=== PATIENT | male | born 1990 | race Caucasian/White ===

== ENCOUNTER 2016-07-24 06:00 | Emergency (ER) | payer OTHER ==
[~2016-07-24] VITALS: Ht 177.8 cm; Wt 96.6 kg
[2016-07-24 06:09] VITALS: BP 149/75
--- NOTE | 2016-07-24 06:15 | NUR ---
PT TAKEN TO BED 6
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
--- NOTE | 2016-07-24 06:25 | NUR ---
Dr. Morris evaluating patient at bedside.
[2016-07-24] MEDS ORDERED: KETOROLAC 30 MG/ML VIAL IVP ONE (06:30)
[2016-07-24] MEDS ORDERED: NACL 0.9% 1,000 ML IV ONE (06:30)
--- NOTE | 2016-07-24 06:39 | NUR ---
PT TAKEN TO XRAY
--- NOTE | 2016-07-24 06:50 | NUR ---
CAME BACK FROM X-RAY
[2016-07-24 06:52] LABS: BASOPHILS # (AUTO) 0.3 K/uL (0.00-0.22); EOSINOPHILS # (AUTO) 0.3 K/uL (0-0.4); EOSINOPHILS % (AUTO) 4.2 % (0.0-4.0); HEMATOCRIT 50.9 % (36-52); HEMOGLOBIN 16.9 g/dL (12.0-18.0); LYMPHOCYTES # (AUTO) 2.1 K/uL (2.0-11.5); LYMPHOCYTES % (AUTO) 27.2 % (20.5-51.1); MEAN CORPUSCULAR HEMOGLOBIN 32 pg (27-31); MEAN CORPUSCULAR HGB CONC 33 g/dL (33-37); MEAN CORPUSCULAR VOLUME 96 fL (80-94); MONOCYTES # (AUTO) 0.9 K/uL (0.8-1.0); MONOCYTES % (AUTO) 11.5 % (1.7-9.3); NEUTROPHILS # (AUTO) 4.1 K/uL (1.8-7.7); NEUTROPHILS % (AUTO) 53.1 % (42.2-75.2); PLATELET COUNT (AUTO) 173 K/uL (140-450); RED BLOOD CELL COUNT(AUTO) 5.32 MIL/uL (4.20-6.10); RED CELL DISTRIBUTION WIDTH 12.7 % (11.6-13.7); WHITE BLOOD COUNT (AUTO) 7.7 K/uL (4.8-10.8)
[2016-07-24 06:59] LABS: AMPHETAMINE, URINE NEG. ng/ml (NEG <=1000); BARBITURATE, URINE NEG. ng/ml (NEG <=200); BENZODIAZEPINE, URINE NEG. ng/mL (NEG <=200); CANNABINOID, URINE POS. ng/mL (NEG <=50); COCAINE, URINE NEG. ng/mL (NEG <=300); OPIATE, URINE NEG. ng/mL (NEG <=2000); PHENCYCLIDINE SCREEN,URINE NEG. ng/mL (NEG <=25)
[2016-07-24 07:00] LABS: ANION GAP 9.7 (8-16); CALCIUM 9.4 mg/dL (8.5-10.1); CREATININE 1.2 mg/dL (0.6-1.3); POTASSIUM 3.7 mmol/L (3.5-5.1)
[2016-07-24 07:04] LABS: INR 1.1 (0.8-1.2); PARTIAL THROMBOPLASTIN TIME 31.3 secs (22-35.6); PROTHROMBIN TIME 10.1 secs (10.8-13.4)
[2016-07-24 07:08] LABS: ALBUMIN 4.4 g/dL (3.4-5.0); TOTAL BILIRUBIN 1.8 mg/dL (0.0-1.0); TOTAL PROTEIN, SERUM 8.1 g/dL (6.4-8.2)
--- NOTE | 2016-07-24 07:13 | NUR ---
Pt report given to [facility] AT BEDSIDE. Transfer of care at this time.
--- NOTE | 2016-07-24 07:24 | NUR ---
Pt found resting comfortably. No distress noted. VSS.
[2016-07-24 07:48] VITALS: BP 139/69
== END 2016-07-24 07:46 | disposition home or self-care (01) ==
LOC: MED 06:00
DX: S22.20XA Unspecified fracture of sternum, initial encounter for closed fracture (principal); R03.0 Elevated blood-pressure reading, without diagnosis of hypertension; X58.XXXA Exposure to other specified factors, initial encounter; Y93.89 Activity, other specified; Y92.89 Other specified places as the place of occurrence of the external cause; Y99.8 Other external cause status
CPT/HCPCS: 36415; 71010; 71120; 80053; 80305; 84484; 85025; 85610; 85730; 93005; 96361; 96374; 99285; J1885; J7030; 81002

== ENCOUNTER 2016-09-17 01:30 | Emergency (ER) | payer OTHER ==
[~2016-09-17] VITALS: Ht 177.8 cm; Wt 92.1 kg
[2016-09-17 01:40] VITALS: BP 134/79
--- NOTE | 2016-09-17 01:54 | NUR ---
AMBULATED TO ER BED 4
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
--- NOTE | 2016-09-17 02:00 | NUR ---
Patient being evaluated by DR. LOUIS at bedside.
[2016-09-17 02:38] LABS: ANION GAP 11.1 (8-16); CALCIUM 8.3 mg/dL (8.5-10.1); CARBON DIOXIDE 29.4 mmol/L (21-32); CREATININE 1.2 mg/dL (0.7-1.3); POTASSIUM 3.5 mmol/L (3.5-5.1)
[2016-09-17 03:26] VITALS: BP 141/81
--- NOTE | 2016-09-17 03:29 | NUR ---
Patient discharged with v/s stable. Written and verbal after care instructions given and explained. Patient verbalized understanding. Ambulatory with steady gait. All questions addressed prior to discharge. Advised to follow up with PMD.
== END 2016-09-17 03:05 | disposition home or self-care (01) ==
LOC: MED 01:30
DX: F14.10 Cocaine abuse, uncomplicated (principal); F12.10 Cannabis abuse, uncomplicated
CPT/HCPCS: 36415; 80048; 84484; 93005; 99285

== ENCOUNTER 2016-10-14 11:28 | Emergency (ER) | payer OTHER ==
[~2016-10-14] VITALS: Ht 175.3 cm; Wt 90.7 kg
[2016-10-14 11:37] VITALS: BP 141/73
[2016-10-14] MEDS ORDERED: cefTRIAXone 250 MG in LIDOCAINE 1% ED 0.9 ML IM ONE (11:55)
[2016-10-14] MEDS ORDERED: AZITHROMYCIN 250 MG TAB PO ONE (11:55)
[2016-10-14 13:26] VITALS: BP 129/89
[2016-10-15 09:07] LABS: HIV 1/0/2 ABS, QUAL Non Reactive (Non Reactive)
== END 2016-10-14 13:26 | disposition home or self-care (01) ==
LOC: MED 11:28
DX: Z11.3 Encounter for screening for infections with a predominantly sexual mode of transmission (principal); J02.9 Acute pharyngitis, unspecified; B00.9 Herpesviral infection, unspecified
CPT/HCPCS: 36415; 86592; 86694; 86702; 87081; 96372; 99284; J0696; J2001

== ENCOUNTER 2017-01-25 08:39 | Outpatient (CLI) | payer OTHER ==
[2017-01-25 09:06] LABS: BASOPHILS # (AUTO) 0.3 K/uL (0.00-0.22); BASOPHILS % (AUTO) 4.2 % (0.0-2.0); EOSINOPHILS # (AUTO) 0.4 K/uL (0-0.4); EOSINOPHILS % (AUTO) 5.6 % (0.0-4.0); HEMOGLOBIN 15.6 g/dL (12.0-18.0); LYMPHOCYTES # (AUTO) 1.7 K/uL (2.0-11.5); LYMPHOCYTES % (AUTO) 24.9 % (20.5-51.1); MEAN CORPUSCULAR HEMOGLOBIN 31 pg (27-31); MEAN CORPUSCULAR HGB CONC 33 g/dL (33-37); MEAN CORPUSCULAR VOLUME 94 fL (80-94); MONOCYTES # (AUTO) 0.5 K/uL (0.8-1.0); MONOCYTES % (AUTO) 7.5 % (1.7-9.3); NEUTROPHILS # (AUTO) 4.1 K/uL (1.8-7.7); NEUTROPHILS % (AUTO) 57.8 % (42.2-75.2); PLATELET COUNT (AUTO) 166 K/uL (140-450); RED BLOOD CELL COUNT(AUTO) 5.03 MIL/uL (4.20-6.10); RED CELL DISTRIBUTION WIDTH 12.7 % (11.6-13.7)
[2017-01-25 14:20] LABS: ALBUMIN 4.3 g/dL (3.4-5.0); ANION GAP 14.4 (8-16); CARBON DIOXIDE 29.1 mmol/L (21-32); CHOL/HDL RATIO 3.7 (1-4.5); CREATININE 1.2 mg/dL (0.7-1.3); POTASSIUM 4.5 mmol/L (3.5-5.1); THYROID STIMULATING HORMONE 2.2 uIU/mL (0.34-3.74)
== END 2017-01-25 22:00 | disposition home or self-care (01) ==
LOC: MLB 08:39
PROVIDERS: ATTEND Family Medicine
DX: E78.2 Mixed hyperlipidemia (principal); Z20.2 Contact with and (suspected) exposure to infections with a predominantly sexual mode of transmission
CPT/HCPCS: 36415; 80053; 84443; 85025; 86702

== ENCOUNTER 2017-03-11 15:32 | Outpatient (CLI) | payer OTHER ==
[2017-03-11 16:47] LABS: BASOPHILS # (AUTO) 0.4 K/uL (0.00-0.22); EOSINOPHILS # (AUTO) 0.3 K/uL (0-0.4); HEMATOCRIT 44.4 % (36-52); HEMOGLOBIN 14.9 g/dL (12.0-18.0); LYMPHOCYTES # (AUTO) 1.9 K/uL (2.0-11.5); MEAN CORPUSCULAR HEMOGLOBIN 32 pg (27-31); MEAN CORPUSCULAR HGB CONC 34 g/dL (33-37); MEAN CORPUSCULAR VOLUME 95 fL (80-94); MONOCYTES # (AUTO) 0.9 K/uL (0.8-1.0); NEUTROPHILS # (AUTO) 4.3 K/uL (1.8-7.7); PLATELET COUNT (AUTO) 195 K/uL (140-450); RED BLOOD CELL COUNT(AUTO) 4.67 MIL/uL (4.20-6.10); RED CELL DISTRIBUTION WIDTH 12.7 % (11.6-13.7); WHITE BLOOD COUNT (AUTO) 7.8 K/uL (4.8-10.8)
[2017-03-11 17:28] LABS: ALBUMIN 4.3 g/dL (3.4-5.0); ANION GAP 12.9 (8-16); CARBON DIOXIDE 32.1 mmol/L (21-32); CREATININE 1.3 mg/dL (0.7-1.3); MAGNESIUM 2.1 mg/dL (1.8-2.4); TOTAL BILIRUBIN 0.8 mg/dL (0.0-1.0)
== END 2017-03-11 21:46 | disposition home or self-care (01) ==
LOC: MLB 15:32
PROVIDERS: ATTEND Family Medicine
DX: R42 Dizziness and giddiness (principal); R51 Headache; R73.01 Impaired fasting glucose
CPT/HCPCS: 36415; 80053; 83036; 83735; 85025; 85651

== ENCOUNTER 2017-07-01 08:13 | Outpatient (CLI) | payer OTHER ==
[2017-07-01 13:55] LABS: ANION GAP 13.7 (8-16); CARBON DIOXIDE 29.6 mmol/L (21-32); POTASSIUM 4.3 mmol/L (3.5-5.1)
[2017-07-01 13:56] LABS: ALBUMIN 4.5 g/dL (3.4-5.0); CREATININE 1.2 mg/dL (0.7-1.3); TOTAL BILIRUBIN 1.7 mg/dL (0.0-1.0)
[2017-07-01 13:57] LABS: CHOL/HDL RATIO 5.1 (1-4.5)
== END 2017-07-01 21:12 | disposition home or self-care (01) ==
LOC: MUS 08:13
PROVIDERS: ATTEND Family Medicine
DX: R10.11 Right upper quadrant pain (principal); E78.5 Hyperlipidemia, unspecified; R73.9 Hyperglycemia, unspecified
CPT/HCPCS: 36415; 76705; 80053; 83036

== ENCOUNTER 2018-06-08 07:12 | Emergency (ER) | payer OTHER ==
[~2018-06-08] VITALS: Ht 177.8 cm; Wt 96.8 kg
[2018-06-08 07:16] VITALS: BP 139/80
--- NOTE | 2018-06-08 07:21 | NUR ---
Patient ambulated to bed 4.
--- NOTE | 2018-06-08 07:24 | NUR ---
PT BIB SELF TO THE ED WITH THE CHIEF C/O THROAT PAIN, SWOLLEN TONSILS AND COUGH FOR 4 WEEKS. NOT SEEN BY ANY DOCTOR YET. NOT TAKING ANY MEDS CURRENTLY. DRY COUGH, NO BLOOD IN COUGH. DENIES RECENT FEVER. BREATHING NORMALLY. CLEAR LUNGS SOUND. DENIES ANY OTHER PROBLEM AT THIS TIME. VSS. ER AWARE.
--- NOTE | 2018-06-08 07:26 | NUR ---
PT BEING SEEN BY ER AT THIS TIME.
[2018-06-08] MEDS ORDERED: DEXAMETHASONE 10 MG/ML VIAL IM ONE ×2 (07:35→07:45)
[2018-06-08] MEDS ORDERED: DEXAMETHASONE 4 MG/ML VIAL ONE (07:46)
--- NOTE | 2018-06-08 07:52 | NUR ---
SWAB TAKEN TO THE LAB.
--- NOTE | 2018-06-08 09:28 | NUR ---
RE-EVALUATED BY SANTANA BALL.
[2018-06-08] MEDS ORDERED: PENICILLIN G BENZATHINE L-A 1.2 MU/2 ML SYR IM ONE (09:30)
[2018-06-08 09:53] VITALS: BP 117/70
== END 2018-06-08 09:52 | disposition home or self-care (01) ==
LOC: MED 07:12
DX: J02.9 Acute pharyngitis, unspecified (principal)
CPT/HCPCS: 87081; 96372; 99283; J0561; J1100

== ENCOUNTER 2018-09-02 07:57 | Outpatient (CLI) | payer OTHER ==
[2018-09-02 08:31] LABS: BASOPHILS % (AUTO) 0.6 % (0.0-2.0); EOSINOPHILS # (AUTO) 0.2 K/uL (0-0.4); EOSINOPHILS % (AUTO) 3.1 % (0.0-4.0); HEMOGLOBIN 16.4 g/dL (12.0-18.0); LYMPHOCYTES # (AUTO) 1.5 K/uL (2.0-11.5); LYMPHOCYTES % (AUTO) 23.7 % (20.5-51.1); MEAN CORPUSCULAR HEMOGLOBIN 33 pg (27-31); MEAN CORPUSCULAR HGB CONC 34 g/dL (33-37); MEAN CORPUSCULAR VOLUME 94.9 fL (80-94); MONOCYTES # (AUTO) 0.6 K/uL (0.8-1.0); MONOCYTES % (AUTO) 8.5 % (1.7-9.3); NEUTROPHILS # (AUTO) 4.2 K/uL (1.8-7.7); NEUTROPHILS % (AUTO) 64.1 % (42.2-75.2); PLATELET COUNT (AUTO) 168 K/uL (140-450); RED BLOOD CELL COUNT(AUTO) 5.06 MIL/uL (4.20-6.10); RED CELL DISTRIBUTION WIDTH 13.3 % (11.6-13.7); WHITE BLOOD COUNT (AUTO) 6.5 K/uL (4.8-10.8)
[2018-09-02 09:03] LABS: ALBUMIN 4.3 g/dL (3.4-5.0); ANION GAP 12.2 (8-16); CARBON DIOXIDE 29.7 mmol/L (21-32); CHOL/HDL RATIO 5.6 (1-4.5); CREATININE 1.3 mg/dL (0.7-1.3); POTASSIUM 3.9 mmol/L (3.5-5.1); THYROID STIMULATING HORMONE 2.42 uIU/mL (0.34-3.74); TOTAL BILIRUBIN 1.1 mg/dL (0.0-1.0)
== END 2018-09-02 21:25 | disposition home or self-care (01) ==
LOC: MLB 07:57
PROVIDERS: ATTEND Family Medicine
DX: E78.2 Mixed hyperlipidemia (principal); J03.90 Acute tonsillitis, unspecified
CPT/HCPCS: 36415; 80053; 83036; 84443; 85025; 85651; 86140